=== PATIENT | male | born 1985 | race Hispanic/Latino ===

== ENCOUNTER 2017-08-26 22:46 | Emergency (ER) | payer BC ==
[2017-08-26] MEDS ORDERED: KETOROLAC TROMETHAMINE 60 MG/2 ML VIAL ONE (22:59)
== END 2017-08-26 23:08 | disposition home or self-care (01) ==
LOC: EDH 22:46
DX: S29.012A Strain of muscle and tendon of back wall of thorax, initial encounter (principal); Z72.0 Tobacco use; X58.XXXA Exposure to other specified factors, initial encounter; Y93.89 Activity, other specified; Y92.89 Other specified places as the place of occurrence of the external cause; Y99.8 Other external cause status
CPT/HCPCS: 99283; J1885